=== PATIENT | female | born 1985 | race Caucasian/White ===

== ENCOUNTER 2020-11-19 09:53 | Observation (INO) ==
[2020-11-19 11:47] LABS: Basophils # 0.1 K/mcL (0.0-0.2); Basophils % 1.1 %; Eosinophils # 0.2 K/mcL (0.0-0.6); Eosinophils % 2.4 %; Hematocrit 39.2 % (35.3-44.9); Hemoglobin 13.6 g/dL (11.5-15.4); Immature Granulocytes % 0.3 % (0-4); Lymphocytes # 1.5 K/mcL (0.6-4.6); Lymphocytes % 19.5 %; Mean Corpuscular HGB Conc 34.7 g/dL (31.6-35.5); Mean Corpuscular Hemoglobin 29.8 pg (28.0-33.3); Mean Corpuscular Volume 85.8 fL (83.0-100.0); Mean Platelet Volume 9.5 fL (9.4-12.4); Monocytes # 1.1 K/mcL (0.0-1.3); Monocytes % 15.2 %; Neutrophils # 4.6 K/mcL (1.6-8.9); Platelet Count 452 K/mcL (140-400); Red Blood Count 4.57 M/mcL (3.82-4.97); Red Cell Distribution Width 18.9 % (11.5-14.5); Segmented Neutrophils % 61.5 %; White Blood Count 7.5 K/mcL (4.3-11.1)
[2020-11-19 11:51] LABS: Bacteria,Urine Few per hpf (None-Few); Bilirubin,Urine Large (Negative); Blood,Urine Negative (Negative); Clarity,Urine Turbid (Clear); Color,Urine Dark-Yellow (Yellow); Glucose,Urine (UA) 300 mg/dL (Normal); Ketones,Urine Negative (Negative); Leukocyte Esterase,Urine Negative (Negative); Mucus,Urine Few per lpf (None-Few); Nitrite,Urine Negative (Negative); PH,Urine 6.5 pH Units (5.0-8.0); Protein,Urine Negative (Neg-Trace); RBC,Urine 0-3 per hpf (0-3); Specific Gravity,Urine 1.017 (1.010-1.025); Squamous Epithelial Cell,Urine Moderate per hpf (None-Few); Urobilinogen,Urine Normal (Normal)
[2020-11-19 12:07] LABS: BUN/Creatinine Ratio 5 (6-26); Blood Urea Nitrogen 4 mg/dL (6-20); Calcium 8.6 mg/dL (8.6-10.3); Carbon Dioxide 28 mEq/L (23-29); Chloride 98 mEq/L (98-107); Glucose 161 mg/dL (70-105); Osmolality,Calculated 276 (280-300); Potassium 3.9 mEq/L (3.5-5.1); Sodium 133 mEq/L (136-145); eGFR For African Americans > 60 (> 60); eGFR For Non-African Americans > 60 (> 60)
[2020-11-19] MEDS ORDERED: Isovue-370 500 ML BOTTLE IVP ONE (12:34)
[2020-11-19] MEDS ORDERED: 0.9 % Sodium Chloride 1,000 ML IVC ONE (12:38)
[2020-11-19] MEDS ORDERED: Ondansetron 4 MG/2 ML VIAL IVP ONE (12:38)
[2020-11-19 13:45] LABS: Acetaminophen < 10 mcg/mL (10-20); Alanine Aminotransferase 526 Units/L (7-52); Albumin 3.4 g/dL (3.5-5.7); Albumin/Globulin Ratio 1.1 (1.1-2.2); Alkaline Phosphatase 212 Units/L (34-104); Aspartate Amino Transferase 517 Units/L (13-39); Bilirubin,Direct 13.1 mg/dL (0.0-0.2); Bilirubin,Indirect 6.5 mg/dL (0.0-1.0); Bilirubin,Total 19.6 mg/dL (0.3-1.0); Lipase 24 Units/L (11-82); Total Protein 6.4 g/dL (6.4-8.9)
[2020-11-19 14:22] LABS: Hepatitis B Core IgM Reactive (Nonreactive); Hepatitis C Virus Antibody Nonreactive (Nonreactive)
[2020-11-19 14:23] LABS: Hepatitis A Antibody IgM Nonreactive (Nonreactive)
[2020-11-19 16:24] LABS: INR 1.5; Prothrombin Time 17.5 Seconds (9.4-12.1)
[2020-11-19] MEDS ORDERED: 0.9 % Sodium Chloride 1,000 ML IVC SCH (17:15)
[2020-11-19] MEDS ORDERED: Naloxone 0.4 MG/ML INJ IVP PRN (17:18)
[2020-11-19] MEDS ORDERED: Ondansetron 4 MG/2 ML VIAL IVP PRN (17:18)
[2020-11-19] MEDS ORDERED: Melatonin 3 MG TABLET PO PRN (17:18)
[2020-11-19 18:10] LABS: Hepatitis B Surface Antigen Reactive (Nonreactive)
[2020-11-19] MEDS: *HR* OxyCODONE Immed Rel 5 MG TABLET PO PRN (19:59)
[2020-11-19] MEDS: Nicotine 14 MG PATCH.TD24 TD SCH (23:13)
[2020-11-20 03:09] LABS: Hematocrit 34.5 % (35.3-44.9); Mean Corpuscular HGB Conc 34.5 g/dL (31.6-35.5); Mean Corpuscular Hemoglobin 29.2 pg (28.0-33.3); Mean Corpuscular Volume 84.6 fL (83.0-100.0); Mean Platelet Volume 9.7 fL (9.4-12.4); Platelet Count 401 K/mcL (140-400); Red Blood Count 4.08 M/mcL (3.82-4.97); Red Cell Distribution Width 18.6 % (11.5-14.5); White Blood Count 7.5 K/mcL (4.3-11.1)
[2020-11-20 03:18] LABS: INR 1.6; Prothrombin Time 17.7 Seconds (9.4-12.1)
[2020-11-20 03:21] LABS: Hemoglobin 11.9 g/dL (11.5-15.4)
[2020-11-20 03:36] LABS: Alanine Aminotransferase 403 Units/L (7-52); Albumin 2.9 g/dL (3.5-5.7); Albumin/Globulin Ratio 1.1 (1.1-2.2); Alkaline Phosphatase 176 Units/L (34-104); Aspartate Amino Transferase 404 Units/L (13-39); BUN/Creatinine Ratio 8 (6-26); Bilirubin,Direct 9.5 mg/dL (0.0-0.2); Bilirubin,Indirect 6.9 mg/dL (0.0-1.0); Bilirubin,Total 16.4 mg/dL (0.3-1.0); Blood Urea Nitrogen 6 mg/dL (6-20); Calcium 8.2 mg/dL (8.6-10.3); Carbon Dioxide 30 mEq/L (23-29); Chloride 99 mEq/L (98-107); Globulin 2.7 g/dL (2.4-3.5); Glucose 107 mg/dL (70-105); Magnesium 1.6 mg/dL (1.6-2.6); Osmolality,Calculated 280 (280-300); Potassium 3.9 mEq/L (3.5-5.1); Sodium 136 mEq/L (136-145); Total Protein 5.6 g/dL (6.4-8.9); eGFR For African Americans > 60 (> 60); eGFR For Non-African Americans > 60 (> 60)
[2020-11-20 04:05] LABS: % Iron Saturation 85 % (15-50); C-Reactive Protein < 5 mg/L (Less than 10); Ferritin 125 ng/mL (10-120); Iron 333 mcg/dL (50-170); Transferrin 279 mg/dL (203-362)
[2020-11-20] MEDS: *HR* OxyCODONE Immed Rel 5 MG TABLET PO PRN (04:25)
[2020-11-20 07:14] LABS: Estimated Average Glucose 85 mg/dl; Hemoglobin A1C 4.6 %
[2020-11-20 07:58] VITALS: BP 129/87
[2020-11-20] MEDS ORDERED: Prochlorperazine 10 MG/2 ML VIAL IVP PRN (07:59)
[2020-11-20] MEDS: Nicotine 14 MG PATCH.TD24 TD SCH (08:58)
== END 2020-11-20 09:49 | disposition home or self-care (01) ==
LOC: SUATTDRO → 3ANU 09:53 → EMEROOARM 09:53 → SUATTDRO 17:46 → 3ANU 18:47
PROVIDERS: ADMIT Internal Medicine; ATTEND Internal Medicine